=== PATIENT | male | born 2000 | race African-American/Black ===

== ENCOUNTER 2022-04-01 14:41 | Emergency (ER) | payer MEDICAID, OTHER ==
[~2022-04-01] VITALS: Ht 170.2 cm; Wt 64.4 kg
[2022-04-01 16:20] VITALS: BP 126/80
[2022-04-01] MEDS ORDERED: DexAMETHasone SOD PHOS 10MG/1ML VIAL INJ IM ONE (16:30)
[2022-04-01] MEDS ORDERED: cefTRIAXone W LIDOCAINE 1 GM IM IM ONE (16:30)
[2022-04-01] MEDS ORDERED: PENI500T2 PO (17:06)
== END 2022-04-01 17:35 | disposition home or self-care (01) ==
LOC: ER 14:41
DX: J03.80 Acute tonsillitis due to other specified organisms (principal); B96.89 Other specified bacterial agents as the cause of diseases classified elsewhere; Z79.2 Long term (current) use of antibiotics
CPT/HCPCS: 87070; 87880; 96372; 99284; J0696; J1100